=== PATIENT | female | born 1950 | race African-American/Black ===

== ENCOUNTER 2020-10-10 06:48 | Inpatient (IN) ==
[2020-10-10 09:10] LABS: Basophils % 0.3 % (0.0-0.8); Eosinophils % 0.1 % (0.00-10.9); Hematocrit 28.1 VOL% (35.7-47.0); Hemoglobin 9.1 GM/DL (12.0-16.0); Immature Granulocytes % 0.3 %; Immature Granulocytes Absolute 0.02 #; Lymphocytes # 1.1 10*3/uL (1.4-4.0); Mean Corpuscular HGB Conc 32.4 GM/DL (32-36); Mean Corpuscular Volume 84.6 FL (87-102); Mean Platelet Volume 10.3 FL (9.6-12.0); Monocytes % 3.4 % (1.7-12.7); Neutrophils % 80.9 % (38.7-73.9); Platelet Count 170 T/CUMM (130-400); Red Blood Count 3.32 MC/CUMM (3.8-5.5); White Blood Count 7.3 T/CUMM (4-12)
[2020-10-10] MEDS ORDERED: DEXTROSE 50% 25 GM/50 ML VIAL IV PRN (09:20)
[2020-10-10] MEDS ORDERED: GLUCAGON 1 MG VIAL IM PRN (09:20)
[2020-10-10 09:21] LABS: Bacteria,Urine Occasional /HPF (Few); Bilirubin,Urine Negative (Negative); Blood, Urine Small mg/dL (Negative); Glucose,Urine (UA) 50 mg/dL (Negative); Ketones,Urine Negative (Negative); Mucus,Urine Occasional /LPF (Occasional); Nitrite,Urine Negative (Negative); Protein,Urine 100 MG/DL; RBC,Urine 18 /HPF (0-4); Squamous Epithelial Cell,Urine Occasional /HPF (0-10); Urine Appearance CLEAR (Clear); Urine Color Straw (Yellow); Urine Urobilinogen < 2.0 EU/DL (0.2-1.0); WBC,Urine <1 /HPF (0-6)
[2020-10-10] MEDS: HYDROCORTISONE 100 MG VIAL IV SCH ×2 (09:25→17:16)
[2020-10-10 09:49] LABS: Albumin 3.5 G/DL (3.4-5.0); Bilirubin,Total 0.4 MG/DL (0.2-1.0); Calcium 9.2 MG/DL (8.5-10.1); Osmolality,Calculated 309.3 MOS/KG (273-304); Thyroid Stimulating Hormone 1.78 uIU/ml (0.358-3.74); Total Protein 7.4 G/DL (6.4-8.3)
[2020-10-10] MEDS: INSULIN LISPRO 100 UNIT/ML SUBCUT SCH ×3 (11:47→20:40)
[2020-10-10] MEDS ORDERED: ZALEPLON 5 MG CAPSULE PO PRN (17:27)
[2020-10-10] MEDS ORDERED: ONDANSETRON 4 MG/2 ML VIAL IV PRN (17:27)
[2020-10-10] MEDS ORDERED: ACETAMINOPHEN 325 MG TABLET PO PRN (17:27)
[2020-10-10] MEDS: amLODIPine 10 MG TABLET PO SCH (18:16)
[2020-10-10] MEDS: carvediloL 6.25 MG TABLET PO SCH (18:16)
[2020-10-10] MEDS: SODIUM BICARBONATE 650 MG TABLET PO SCH (20:37)
[2020-10-10] MEDS: APIXABAN 2.5 MG TABLET PO SCH (20:37)
[2020-10-11] MEDS: HYDROCORTISONE 100 MG VIAL IV SCH ×2 (03:28→08:17)
[2020-10-11 04:34] LABS: Calcium 8.9 MG/DL (8.5-10.1); Osmolality,Calculated 304.5 MOS/KG (273-304); Thyroid Stimulating Hormone 0.592 uIU/ml (0.358-3.74)
[2020-10-11] MEDS: amLODIPine 10 MG TABLET PO SCH (08:14)
[2020-10-11] MEDS: INSULIN LISPRO 100 UNIT/ML SUBCUT SCH ×4 (08:14→22:06)
[2020-10-11] MEDS: PANTOPRAZOLE 40 MG TABLET PO SCH (08:14)
[2020-10-11] MEDS: CITALOPRAM 20 MG TABLET PO SCH (08:14)
[2020-10-11] MEDS: APIXABAN 2.5 MG TABLET PO SCH ×2 (08:16→22:05)
[2020-10-11] MEDS: carvediloL 6.25 MG TABLET PO SCH ×2 (08:16→17:16)
[2020-10-11] MEDS: SODIUM BICARBONATE 650 MG TABLET PO SCH ×2 (08:18→22:05)
[2020-10-11] MEDS: HYDROCORTISONE 10 MG TABLET PO SCH (22:05)
[2020-10-11] MEDS: INSULIN GLARGINE 100 UNIT/ML SUBCUT SCH (22:06)
[2020-10-12 06:23] LABS: Calcium 8.6 MG/DL (8.5-10.1); Osmolality,Calculated 299.8 MOS/KG (273-304)
[2020-10-12] MEDS: INSULIN LISPRO 100 UNIT/ML SUBCUT SCH ×4 (08:36→21:39)
[2020-10-12] MEDS: SODIUM BICARBONATE 650 MG TABLET PO SCH ×2 (09:55→21:39)
[2020-10-12] MEDS: HYDROCORTISONE 10 MG TABLET PO SCH ×2 (09:55→21:38)
[2020-10-12] MEDS: CITALOPRAM 20 MG TABLET PO SCH (09:56)
[2020-10-12] MEDS: carvediloL 6.25 MG TABLET PO SCH ×2 (09:56→16:44)
[2020-10-12] MEDS: amLODIPine 10 MG TABLET PO SCH (09:56)
[2020-10-12] MEDS: APIXABAN 2.5 MG TABLET PO SCH ×2 (09:56→21:38)
[2020-10-12] MEDS: PANTOPRAZOLE 40 MG TABLET PO SCH (09:56)
[2020-10-12] MEDS: CETIRIZINE 10 MG TABLET PO SCH (12:03)
[2020-10-12] MEDS: FLUTICASONE 50 MCG NASAL SPRAY 16 GM BOTTLE BOTH NARES SCH (12:03)
[2020-10-12] MEDS: INSULIN GLARGINE 100 UNIT/ML SUBCUT SCH (21:38)
[2020-10-13 06:20] LABS: Calcium 8.5 MG/DL (8.5-10.1); Osmolality,Calculated 302.5 MOS/KG (273-304)
[2020-10-13 06:26] LABS: Basophils % 0.3 % (0.0-0.8); Eosinophils # 0.2 10*3/uL (0.0-0.87); Immature Granulocytes % 0.8 %; Immature Granulocytes Absolute 0.06 #; Lymphocytes # 1.9 10*3/uL (1.4-4.0); Lymphocytes % 24.5 % (21.3-54.2); Mean Corpuscular HGB Conc 33.3 GM/DL (32-36); Mean Corpuscular Volume 83.9 FL (87-102); Mean Platelet Volume 10.4 FL (9.6-12.0); Monocytes % 6.6 % (1.7-12.7); Neutrophils % 65.8 % (38.7-73.9); Platelet Count 187 T/CUMM (130-400); Red Blood Count 2.86 MC/CUMM (3.8-5.5); Red Cell Distribution Width 14.8 % (9.3-17.3); White Blood Count 7.9 T/CUMM (4-12)
[2020-10-13] MEDS: INSULIN LISPRO 100 UNIT/ML SUBCUT SCH ×4 (08:13→21:27)
[2020-10-13] MEDS: carvediloL 6.25 MG TABLET PO SCH ×2 (09:17→16:19)
[2020-10-13] MEDS: FLUTICASONE 50 MCG NASAL SPRAY 16 GM BOTTLE BOTH NARES SCH (09:17)
[2020-10-13] MEDS: CETIRIZINE 10 MG TABLET PO SCH (09:18)
[2020-10-13] MEDS: SODIUM BICARBONATE 650 MG TABLET PO SCH ×2 (09:18→21:27)
[2020-10-13] MEDS: CITALOPRAM 20 MG TABLET PO SCH (09:18)
[2020-10-13] MEDS: HYDROCORTISONE 10 MG TABLET PO SCH ×2 (09:18→21:27)
[2020-10-13] MEDS: APIXABAN 2.5 MG TABLET PO SCH ×2 (09:18→21:27)
[2020-10-13] MEDS: amLODIPine 10 MG TABLET PO SCH (09:18)
[2020-10-13] MEDS: PANTOPRAZOLE 40 MG TABLET PO SCH (09:18)
[2020-10-13] MEDS: INSULIN GLARGINE 100 UNIT/ML SUBCUT SCH (21:28)
[2020-10-14 04:23] LABS: Basophils % 0.3 % (0.0-0.8); Eosinophils # 0.2 10*3/uL (0.0-0.87); Eosinophils % 2.6 % (0.00-10.9); Hematocrit 23.4 VOL% (35.7-47.0); Hemoglobin 7.7 GM/DL (12.0-16.0); Immature Granulocytes % 0.7 %; Immature Granulocytes Absolute 0.05 #; Lymphocytes # 1.6 10*3/uL (1.4-4.0); Mean Corpuscular HGB Conc 32.9 GM/DL (32-36); Mean Corpuscular Volume 84.2 FL (87-102); Mean Platelet Volume 10.5 FL (9.6-12.0); Monocytes % 6.7 % (1.7-12.7); Neutrophils % 67.7 % (38.7-73.9); Platelet Count 184 T/CUMM (130-400); Red Blood Count 2.78 MC/CUMM (3.8-5.5); Red Cell Distribution Width 14.9 % (9.3-17.3); White Blood Count 7.3 T/CUMM (4-12)
[2020-10-14 04:43] LABS: Calcium 8.2 MG/DL (8.5-10.1)
[2020-10-14] MEDS: INSULIN LISPRO 100 UNIT/ML SUBCUT SCH ×3 (07:56→16:17)
[2020-10-14] MEDS: APIXABAN 2.5 MG TABLET PO SCH (08:45)
[2020-10-14] MEDS: carvediloL 6.25 MG TABLET PO SCH ×2 (08:45→16:57)
[2020-10-14] MEDS: CETIRIZINE 10 MG TABLET PO SCH (08:45)
[2020-10-14] MEDS: CITALOPRAM 20 MG TABLET PO SCH (08:45)
[2020-10-14] MEDS: amLODIPine 10 MG TABLET PO SCH (08:45)
[2020-10-14] MEDS: PANTOPRAZOLE 40 MG TABLET PO SCH (08:45)
[2020-10-14] MEDS: FLUTICASONE 50 MCG NASAL SPRAY 16 GM BOTTLE BOTH NARES SCH (08:47)
[2020-10-14] MEDS: SODIUM BICARBONATE 650 MG TABLET PO SCH (08:47)
[2020-10-14 16:30] VITALS: BP 145/47
== END 2020-10-14 19:45 | disposition home health service (06) | DRG 638 ==
LOC: N.CC 08:32 → SUATTDRO 08:32 → N.3E 10-11 13:26
PROVIDERS: ADMIT Internal Medicine; ATTEND Family Medicine